=== PATIENT | female | born 1990 | race Caucasian/White ===

== ENCOUNTER 2016-12-16 17:04 | Emergency (ER) | payer OTHER ==
[~2016-12-16] VITALS: Ht 167.6 cm; Wt 118.2 kg
[2016-12-16 17:08] VITALS: BP 167/109; TEMP 98.6
[2016-12-16 17:53] LABS: BASO # 0.1 (0.0-0.2); BASO % 0.6 % (0.0-2.0); EOS % 0.5 % (0-4.0); GRAN # 5.2 (1.4-6.5); HEMATOCRIT 46.3 % (37.0-47.0); HEMOGLOBIN 16.2 g/dl (12.5-16.0); LYMPH # 2.8 (1.2-3.4); MEAN CELL VOLUME 85 fl (80.0-100.0); MEAN CORPUSCULAR HEMOGLOBIN 30 pg (27.0-31.0); MEAN CORPUSCULAR HGB CONC 35 g/dl (33.0-37.0); MEAN PLATELET VOLUME 10.1 fl (7.4-10.4); MONO # 0.5 (0.1-0.6); MONO % 5.7 % (1.7-9.3); PLATELET COUNT 272 K/mm3 (130-400); RED BLOOD COUNT 5.42 M/mm3 (4.10-5.30); REDCELL DISTRIBUTION WIDTH-CV 12.4 % (11.5-14.5); WHITE BLOOD COUNT 8.6 K/mm3 (4.8-10.8)
[2016-12-16 17:55] LABS: ADJUSTED CALCIUM 9.3 mg/dL (8.4-10.2); ALBUMIN 4.5 gm/dL (3.5-5.0); BILIRUBIN,TOTAL 0.8 mg/dL (0.0-1.0); CALCIUM 9.7 mg/dL (8.4-10.2); CREATININE, serum 0.85 mg/dL (0.52-1.25); POTASSIUM 3.9 mmol/L (3.4-5.0); TOTAL PROTEIN 8.2 gm/dL (6.4-8.2)
[2016-12-16 18:00] LABS: PH 5 (5-8); URINE APPEARANCE Hazy; URINE BACTERIA Rare /hpf; URINE BILIRUBIN Negative (NEGATIVE); URINE BLOOD 3+ (NEGATIVE); URINE COLOR Yellow; URINE GLUCOSE Negative (NEGATIVE); URINE KETONE Negative (NEGATIVE); URINE RBC >50 /hpf; URINE UROBILINOGEN Negative (NEGATIVE)
[2016-12-16] MEDS ORDERED: NORCO 325 MG-51 TAB PO (18:42)
[2016-12-16 18:56] VITALS: PULSE 80
== END 2016-12-16 18:57 | disposition home or self-care (01) ==
LOC: COL.ER 17:04 → EDBD 17:15 → COL.ER 18:57
PROVIDERS: Family Medicine
DX: N20.1 Calculus of ureter (principal); Z98.890 Other specified postprocedural states
CPT/HCPCS: J2270; J2405; J7030

== ENCOUNTER 2016-12-18 21:55 | Observation (INO) | payer OTHER ==
[~2016-12-18] VITALS: Ht 167.6 cm; Wt 123.6 kg
[~2016-12-18 21:55] MED LIST: NORCO 325 MG-51 TAB PO
[2016-12-18 22:39] LABS: PH 6 (5-8); URINE APPEARANCE Hazy; URINE BACTERIA Rare /hpf; URINE BILIRUBIN Negative (NEGATIVE); URINE BLOOD Negative (NEGATIVE); URINE COLOR Yellow; URINE GLUCOSE Negative (NEGATIVE); URINE KETONE Negative (NEGATIVE); URINE RBC 0-2 /hpf; URINE UROBILINOGEN Negative (NEGATIVE); URINE WBC 0-2 /hpf
[2016-12-18 22:54] LABS: BASO % 0.5 % (0.0-2.0); EOS # 0.1 (0.0-0.7); EOS % 1.7 % (0-4.0); GRAN # 3.8 (1.4-6.5); GRAN % 46.3 % (42.2-75.2); HEMOGLOBIN 15.5 g/dl (12.5-16.0); LYMPH # 3.6 (1.2-3.4); LYMPH % 44.8 % (20.0-51.0); MEAN CELL VOLUME 87 fl (80.0-100.0); MEAN CORPUSCULAR HEMOGLOBIN 29 pg (27.0-31.0); MEAN CORPUSCULAR HGB CONC 34 g/dl (33.0-37.0); MEAN PLATELET VOLUME 10.3 fl (7.4-10.4); MONO # 0.5 (0.1-0.6); MONO % 6.6 % (1.7-9.3); PLATELET COUNT 247 K/mm3 (130-400); RED BLOOD COUNT 5.31 M/mm3 (4.10-5.30); REDCELL DISTRIBUTION WIDTH-CV 12.5 % (11.5-14.5); WHITE BLOOD COUNT 8.1 K/mm3 (4.8-10.8)
[2016-12-18 23:04] LABS: CALCIUM 9.3 mg/dL (8.4-10.2); CREATININE, serum 0.73 mg/dL (0.52-1.25); POTASSIUM 4.1 mmol/L (3.4-5.0)
[2016-12-19] VITALS (8 sets, daily range): BP systolic 123–149; BP diastolic 65–88; PULSE 64–81; TEMP 97.5–98.6
[2016-12-20] VITALS (12 sets, daily range): BP systolic 130–164; BP diastolic 72–94; PULSE 7–82; TEMP 97.7–98.1
[2016-12-20] MEDS ORDERED: PYRIDIUM 100MG100 MG PO (11:03)
== END 2016-12-20 11:50 | disposition home or self-care (01) ==
LOC: COL.ER 21:55 → MEDICAL 22:41
PROVIDERS: Emergency Medicine
DX: N20.1 Calculus of ureter (principal); Z87.442 Personal history of urinary calculi; F32.9 Major depressive disorder, single episode, unspecified; J45.909 Unspecified asthma, uncomplicated; Z90.49 Acquired absence of other specified parts of digestive tract
CPT/HCPCS: G0378; J0690; J1170; J1885; J2405; J2704; J3010; J7030

== ENCOUNTER → 2017-01-04 | Outpatient (CLI) | payer OTHER ==
[~2017-01-04] MED LIST changes: +PERCOCET 325 MG1 TA2 PO; +PHENERGAN 25 TA25 MG PO; +PYRIDIUM 100MG100 MG PO; +ZOFRAN 4MG T4 MG/TAB PO
== END ==
LOC: COL.RAD 12:07
DX: N20.0 Calculus of kidney (principal)

== ENCOUNTER 2017-01-28 18:55 | Emergency (ER) | payer OTHER ==
[~2017-01-28] VITALS: Ht 167.6 cm; Wt 118.2 kg
[~2017-01-28 18:55] MED LIST changes: -PERCOCET 325 MG1 TA2 PO; -PHENERGAN 25 TA25 MG PO; -ZOFRAN 4MG T4 MG/TAB PO
[2017-01-28 18:58] VITALS: TEMP 98
[2017-01-28 19:36] LABS: BASO # 0.1 (0.0-0.2); BASO % 0.6 % (0.0-2.0); EOS # 0.1 (0.0-0.7); EOS % 1.2 % (0-4.0); GRAN # 4.7 (1.4-6.5); GRAN % 54.6 % (42.2-75.2); HEMATOCRIT 48.9 % (37.0-47.0); LYMPH # 3.2 (1.2-3.4); LYMPH % 37.3 % (20.0-51.0); MEAN CELL VOLUME 85 fl (80.0-100.0); MEAN CORPUSCULAR HEMOGLOBIN 30 pg (27.0-31.0); MEAN CORPUSCULAR HGB CONC 35 g/dl (33.0-37.0); MONO # 0.5 (0.1-0.6); MONO % 6.2 % (1.7-9.3); PLATELET COUNT 320 K/mm3 (130-400); RED BLOOD COUNT 5.76 M/mm3 (4.10-5.30); REDCELL DISTRIBUTION WIDTH-CV 12.2 % (11.5-14.5); WHITE BLOOD COUNT 8.6 K/mm3 (4.8-10.8)
[2017-01-28 19:45] LABS: ADJUSTED CALCIUM 9.7 mg/dL (8.4-10.2); ALBUMIN 4.8 gm/dL (3.5-5.0); BILIRUBIN,TOTAL 0.7 mg/dL (0.0-1.0); CALCIUM 10.3 mg/dL (8.4-10.2); CREATININE, serum 0.85 mg/dL (0.52-1.25); PH 5 (5-8); TOTAL PROTEIN 8.7 gm/dL (6.4-8.2); URINE APPEARANCE Cloudy; URINE BACTERIA Rare /hpf; URINE BILIRUBIN Negative (NEGATIVE); URINE BLOOD Negative (NEGATIVE); URINE COLOR Yellow; URINE GLUCOSE Negative (NEGATIVE); URINE KETONE Negative (NEGATIVE); URINE RBC 0-2 /hpf; URINE UROBILINOGEN Negative (NEGATIVE)
[2017-01-28] MEDS ORDERED: ZOFRAN 4MG T4 MG/TAB PO (20:17)
[2017-01-28] MEDS ORDERED: NORCO 325 MG-51 TAB PO (20:17)
[2017-01-28 20:53] VITALS: BP 133/83; PULSE 82
== END 2017-01-28 20:53 | disposition home or self-care (01) ==
LOC: COL.ER 18:55
PROVIDERS: Emergency Medicine
DX: N20.1 Calculus of ureter (principal); Z95.5 Presence of coronary angioplasty implant and graft
CPT/HCPCS: J1170; J1885; J2550; J7030

== ENCOUNTER 2017-01-31 16:26 | Emergency (ER) | payer OTHER ==
[~2017-01-31] VITALS: Ht 167.6 cm; Wt 119.0 kg
[~2017-01-31 16:26] MED LIST changes: +ZOFRAN 4MG T4 MG/TAB PO
[2017-01-31 16:28] VITALS: BP 163/91; TEMP 97.9
[2017-01-31 17:28] LABS: BASO % 0.5 % (0.0-2.0); EOS # 0.1 (0.0-0.7); EOS % 0.9 % (0-4.0); GRAN # 4.6 (1.4-6.5); GRAN % 53.7 % (42.2-75.2); HEMATOCRIT 44.7 % (37.0-47.0); HEMOGLOBIN 15.5 g/dl (12.5-16.0); LYMPH # 3.3 (1.2-3.4); LYMPH % 38.6 % (20.0-51.0); MEAN CELL VOLUME 86 fl (80.0-100.0); MEAN CORPUSCULAR HEMOGLOBIN 30 pg (27.0-31.0); MEAN CORPUSCULAR HGB CONC 35 g/dl (33.0-37.0); MEAN PLATELET VOLUME 10.1 fl (7.4-10.4); MONO # 0.5 (0.1-0.6); MONO % 6.1 % (1.7-9.3); PLATELET COUNT 288 K/mm3 (130-400); RED BLOOD COUNT 5.22 M/mm3 (4.10-5.30); REDCELL DISTRIBUTION WIDTH-CV 12.2 % (11.5-14.5); WHITE BLOOD COUNT 8.6 K/mm3 (4.8-10.8)
[2017-01-31 17:36] LABS: ADJUSTED CALCIUM 8.9 mg/dL (8.4-10.2); ALBUMIN 4.4 gm/dL (3.5-5.0); BILIRUBIN,TOTAL 0.7 mg/dL (0.0-1.0); CALCIUM 9.2 mg/dL (8.4-10.2); CREATININE, serum 0.79 mg/dL (0.52-1.25); POTASSIUM 3.8 mmol/L (3.4-5.0); TOTAL PROTEIN 7.7 gm/dL (6.4-8.2)
[2017-01-31 17:40] LABS: C-REACTIVE PROTEIN 0.5 mg/dL (0.0-0.9)
[2017-01-31 18:03] LABS: PH 6 (5-8); SQUAMOUS EPITHELIAL 0-2 /hpf; URINE APPEARANCE Clear; URINE BACTERIA Rare /hpf; URINE BILIRUBIN Negative (NEGATIVE); URINE BLOOD Negative (NEGATIVE); URINE COLOR Yellow; URINE GLUCOSE Negative (NEGATIVE); URINE KETONE Negative (NEGATIVE); URINE RBC None Seen /hpf; URINE WBC 0-2 /hpf
[2017-01-31 19:27] VITALS: PULSE 90
== END 2017-01-31 19:29 | disposition home or self-care (01) ==
LOC: COL.ER 16:26
PROVIDERS: Nurse Practitioner
DX: R10.9 Unspecified abdominal pain (principal); Z87.442 Personal history of urinary calculi; Z90.49 Acquired absence of other specified parts of digestive tract; Z90.89 Acquired absence of other organs; Z87.891 Personal history of nicotine dependence
CPT/HCPCS: J1170; J1885; J2405; J7030; Q9967

== ENCOUNTER 2017-02-17 18:13 | Emergency (ER) | payer SELFPAY ==
[~2017-02-17] VITALS: Ht 167.6 cm; Wt 116.6 kg
[2017-02-17 18:16] VITALS: BP 172/83; TEMP 99.3
[2017-02-17] MEDS ORDERED: PHENERGAN 25 TA25 MG PO (19:17)
[2017-02-17] MEDS ORDERED: PERCOCET 325 MG1 TA2 PO (19:17)
[2017-02-17 19:29] LABS: PH 5 (5-8); SQUAMOUS EPITHELIAL 0-2 /hpf; URINE APPEARANCE Cloudy; URINE BACTERIA None Seen /hpf; URINE BILIRUBIN Negative (NEGATIVE); URINE BLOOD 1+ (NEGATIVE); URINE COLOR Yellow; URINE GLUCOSE Negative (NEGATIVE); URINE KETONE Negative (NEGATIVE)
[2017-02-17 19:30] VITALS: PULSE 86
== END 2017-02-17 19:30 | disposition home or self-care (01) ==
LOC: COL.ER 18:13
PROVIDERS: Nurse Practitioner
DX: R10.9 Unspecified abdominal pain (principal); Z87.442 Personal history of urinary calculi; Z98.890 Other specified postprocedural states

== ENCOUNTER 2017-05-04 01:51 | Emergency (ER) | payer OTHER ==
[~2017-05-04] VITALS: Ht 167.6 cm; Wt 118.2 kg
[~2017-05-04 01:51] MED LIST changes: +ASPERCREME1 EACH TP; +PERCOCET 325 MG1 TA2 PO; +PHENERGAN 25 TA25 MG PO; +ULTRAM 50MG TAB50 MG PO; +VOLTAREN 75 DR75 MG PO
[2017-05-04 01:53] VITALS: BP 180/85; PULSE 85; TEMP 98
[2017-05-04 02:22] LABS: BASO # 0.1 (0.0-0.2); BASO % 0.7 % (0.0-2.0); EOS # 0.4 (0.0-0.7); EOS % 3.5 % (0-4.0); HEMATOCRIT 45.1 % (37.0-47.0); HEMOGLOBIN 15.6 g/dl (12.5-16.0); LYMPH # 4.4 (1.2-3.4); LYMPH % 41.8 % (20.0-51.0); MEAN CELL VOLUME 86 fl (80.0-100.0); MEAN CORPUSCULAR HEMOGLOBIN 30 pg (27.0-31.0); MEAN CORPUSCULAR HGB CONC 35 g/dl (33.0-37.0); MEAN PLATELET VOLUME 9.7 fl (7.4-10.4); MONO # 0.6 (0.1-0.6); MONO % 5.7 % (1.7-9.3); PLATELET COUNT 287 K/mm3 (130-400); RED BLOOD COUNT 5.24 M/mm3 (4.10-5.30); WHITE BLOOD COUNT 10.5 K/mm3 (4.8-10.8)
[2017-05-04 02:34] LABS: ADJUSTED CALCIUM 9.1 mg/dL (8.4-10.2); ALANINE AMINOTRANSFERASE 124 U/L (9-52); ALBUMIN 4.8 gm/dL (3.5-5.0); ALKALINE PHOSPHATASE 131 U/L (50-136); ANION GAP 10 mmol/L (7-16); BILIRUBIN,TOTAL 0.6 mg/dL (0.0-1.0); BLOOD UREA NITROGEN 9 mg/dL (7-17); CALCIUM 9.7 mg/dL (8.4-10.2); CARBON DIOXIDE 23 mmol/L (22-30); CHLORIDE 106 mmol/L (98-107); CREATININE, serum 0.75 mg/dL (0.52-1.25); GLUCOSE 103 mg/dL (74-106); POTASSIUM 3.8 mmol/L (3.4-5.0); SODIUM 139 mmol/L (137-145); TOTAL PROTEIN 8.2 gm/dL (6.4-8.2)
[2017-05-04 02:38] LABS: COLLECTION METHOD CLEAN CATCH
[2017-05-04 02:38] LABS: C-REACTIVE PROTEIN < 0.5 mg/dL (0.0-0.9)
[2017-05-04 02:43] LABS: MUCOUS Present /lpf; PH 7 (5-8); SQUAMOUS EPITHELIAL 0-2 /hpf; URINE APPEARANCE Clear; URINE BACTERIA None Seen /hpf; URINE BILIRUBIN Negative (NEGATIVE); URINE BLOOD Negative (NEGATIVE); URINE COLOR Straw; URINE GLUCOSE Negative (NEGATIVE); URINE KETONE Negative (NEGATIVE); URINE LEUKOCYTE ESTERASE Negative (NEGATIVE); URINE PROTEIN(semi-quant) Negative (NEGATIVE); URINE RBC 0-2 /hpf; URINE UROBILINOGEN Negative (NEGATIVE); URINE WBC 0-2 /hpf
== END 2017-05-04 03:08 | disposition home or self-care (01) ==
LOC: COL.ER 01:51
PROVIDERS: Physician Assistant
DX: R10.9 Unspecified abdominal pain (principal); F17.210 Nicotine dependence, cigarettes, uncomplicated; Z90.49 Acquired absence of other specified parts of digestive tract; Z87.442 Personal history of urinary calculi
CPT/HCPCS: J1885

== ENCOUNTER 2017-06-05 16:15 | Emergency (ER) | payer OTHER ==
[~2017-06-05] VITALS: Ht 167.6 cm; Wt 106.2 kg
[2017-06-05 16:22] VITALS: BP 150/83; TEMP 99.1
[2017-06-05 17:43] LABS: INFLUENZA A NEGATIVE; INFLUENZA B NEGATIVE
[2017-06-05] MEDS ORDERED: PREDNISONE20 MG PO (18:32)
[2017-06-05 18:39] VITALS: PULSE 128
== END 2017-06-05 18:40 | disposition home or self-care (01) ==
LOC: COL.ER 16:15
PROVIDERS: Nurse Practitioner
DX: R05 Cough (principal); R00.0 Tachycardia, unspecified; Z88.0 Allergy status to penicillin; R50.9 Fever, unspecified; R07.1 Chest pain on breathing; R09.81 Nasal congestion; R53.81 Other malaise; R06.02 Shortness of breath
CPT/HCPCS: J7512

== ENCOUNTER 2017-09-07 17:41 | Emergency (ER) | payer SELFPAY ==
[~2017-09-07] VITALS: Ht 167.6 cm; Wt 118.2 kg
[~2017-09-07 17:41] MED LIST changes: +PREDNISONE20 MG PO
[2017-09-07 17:45] VITALS: TEMP 98.8
[2017-09-07 18:08] LABS: COLLECTION METHOD CLEAN CATCH
[2017-09-07 18:17] LABS: MUCOUS Present /lpf; PH 7 (5-8); SQUAMOUS EPITHELIAL 0-2 /hpf; URINE APPEARANCE Clear; URINE BACTERIA None Seen /hpf; URINE BILIRUBIN Negative (NEGATIVE); URINE BLOOD Negative (NEGATIVE); URINE COLOR Yellow; URINE GLUCOSE Negative (NEGATIVE); URINE KETONE Negative (NEGATIVE); URINE LEUKOCYTE ESTERASE Negative (NEGATIVE); URINE NITRATE Negative (NEGATIVE); URINE PROTEIN(semi-quant) Negative (NEGATIVE); URINE RBC 0-2 /hpf; URINE UROBILINOGEN Negative (NEGATIVE)
[2017-09-07 18:21] LABS: BASO % 0.4 % (0.0-2.0); EOS # 0.2 (0.0-0.7); EOS % 1.8 % (0-4.0); GRAN # 5.8 (1.4-6.5); HEMATOCRIT 46.5 % (37.0-47.0); LYMPH # 2.2 (1.2-3.4); LYMPH % 24.7 % (20.0-51.0); MEAN CELL VOLUME 85 fl (80.0-100.0); MEAN CORPUSCULAR HEMOGLOBIN 29 pg (27.0-31.0); MEAN CORPUSCULAR HGB CONC 34 g/dl (33.0-37.0); MEAN PLATELET VOLUME 9.7 fl (7.4-10.4); MONO # 0.7 (0.1-0.6); MONO % 7.9 % (1.7-9.3); PLATELET COUNT 296 K/mm3 (130-400); RED BLOOD COUNT 5.45 M/mm3 (4.10-5.30); REDCELL DISTRIBUTION WIDTH-CV 12.5 % (11.5-14.5)
[2017-09-07 18:33] LABS: ALBUMIN 4.3 gm/dL (3.5-5.0); BILIRUBIN,TOTAL 0.5 mg/dL (0.0-1.0); C-REACTIVE PROTEIN 1.3 mg/dL (0.0-0.9); CALCIUM 9.4 mg/dL (8.4-10.2); CREATININE, serum 0.96 mg/dL (0.52-1.25); TOTAL PROTEIN 8.7 gm/dL (6.4-8.2)
[2017-09-07] MEDS ORDERED: BENTYL 20MG20 MG/TAB PO (20:19)
[2017-09-07 20:34] VITALS: BP 141/93; PULSE 82
== END 2017-09-07 20:35 | disposition home or self-care (01) ==
LOC: COL.ER 17:41
PROVIDERS: Emergency Medicine
DX: R19.7 Diarrhea, unspecified (principal); R10.84 Generalized abdominal pain; E28.2 Polycystic ovarian syndrome; Z87.442 Personal history of urinary calculi
CPT/HCPCS: J0500; J1885

== ENCOUNTER 2018-01-31 17:29 | Emergency (ER) | payer SELFPAY ==
[~2018-01-31] VITALS: Ht 167.6 cm; Wt 118.2 kg
[~2018-01-31 17:29] MED LIST changes: +BENTYL 20MG20 MG/TAB PO
[2018-01-31 17:36] VITALS: TEMP 98.3
[2018-01-31 17:59] LABS: COLLECTION METHOD CLEAN CATCH
[2018-01-31 18:08] LABS: BASO # 0.1 (0.0-0.2); BASO % 0.6 % (0.0-2.0); EOS # 0.2 (0.0-0.7); EOS % 2.3 % (0-4.0); GRAN # 5.5 (1.4-6.5); GRAN % 56.1 % (42.2-75.2); HEMATOCRIT 44.9 % (37.0-47.0); HEMOGLOBIN 14.9 g/dl (12.5-16.0); LYMPH # 3.3 (1.2-3.4); LYMPH % 33.2 % (20.0-51.0); MEAN CELL VOLUME 87 fl (80.0-100.0); MEAN CORPUSCULAR HEMOGLOBIN 29 pg (27.0-31.0); MEAN CORPUSCULAR HGB CONC 33 g/dl (33.0-37.0); MEAN PLATELET VOLUME 10.2 fl (7.4-10.4); MONO # 0.7 (0.1-0.6); MONO % 7.5 % (1.7-9.3); PLATELET COUNT 271 K/mm3 (130-400); RED BLOOD COUNT 5.17 M/mm3 (4.10-5.30); REDCELL DISTRIBUTION WIDTH-CV 12.3 % (11.5-14.5)
[2018-01-31 18:14] LABS: ALBUMIN 4.1 gm/dL (3.5-5.0); BILIRUBIN,TOTAL 0.6 mg/dL (0.0-1.0); CALCIUM 8.9 mg/dL (8.4-10.2); CREATININE, serum 0.82 mg/dL (0.52-1.25); TOTAL PROTEIN 7.8 gm/dL (6.4-8.2)
[2018-01-31 18:27] LABS: MUCOUS Present /lpf; PH 6 (5-8); URINE APPEARANCE Hazy; URINE BACTERIA Rare /hpf; URINE BILIRUBIN Negative (NEGATIVE); URINE BLOOD Negative (NEGATIVE); URINE COLOR Yellow; URINE GLUCOSE Negative (NEGATIVE); URINE KETONE Negative (NEGATIVE); URINE LEUKOCYTE ESTERASE Negative (NEGATIVE); URINE NITRATE Negative (NEGATIVE); URINE PROTEIN(semi-quant) Negative (NEGATIVE); URINE RBC 0-2 /hpf; URINE UROBILINOGEN >=4.0 mg/dL (NEGATIVE); URINE WBC 0-2 /hpf
[2018-01-31] MEDS ORDERED: ZOFRAN ODT4 MG PO (18:53)
[2018-01-31] MEDS ORDERED: NORCO 325 MG-51 TAB PO (18:53)
[2018-01-31] MEDS ORDERED: PERCOCET 325 MG1 TA2 PO (18:59)
[2018-01-31 19:29] VITALS: BP 115/72; PULSE 81
== END 2018-01-31 19:29 | disposition home or self-care (01) ==
LOC: COL.ER 17:29
PROVIDERS: Physician Assistant
DX: R11.2 Nausea with vomiting, unspecified (principal); R10.9 Unspecified abdominal pain; Z87.448 Personal history of other diseases of urinary system; Z90.89 Acquired absence of other organs; Z88.0 Allergy status to penicillin; Z90.49 Acquired absence of other specified parts of digestive tract
CPT/HCPCS: J1885; J2405; J3010; J7030

== ENCOUNTER 2018-02-23 17:21 | Emergency (ER) | payer SELFPAY ==
[~2018-02-23 17:21] MED LIST changes: +ZOFRAN ODT4 MG PO
[2018-02-23 17:39] VITALS: TEMP 98.8
[2018-02-23 18:02] LABS: COLLECTION METHOD CLEAN CATCH
[2018-02-23 18:15] LABS: MUCOUS Present /lpf; PH 6 (5-8); URINE APPEARANCE Hazy; URINE BACTERIA None Seen /hpf; URINE BILIRUBIN Negative (NEGATIVE); URINE BLOOD Negative (NEGATIVE); URINE COLOR Yellow; URINE GLUCOSE Negative (NEGATIVE); URINE KETONE Negative (NEGATIVE); URINE LEUKOCYTE ESTERASE Negative (NEGATIVE); URINE NITRATE Negative (NEGATIVE); URINE PROTEIN(semi-quant) Negative (NEGATIVE); URINE UROBILINOGEN >=4.0 mg/dL (NEGATIVE)
[2018-02-23 18:49] LABS: BASO % 0.4 % (0.0-2.0); EOS # 0.2 (0.0-0.7); EOS % 1.9 % (0-4.0); GRAN # 4.9 (1.4-6.5); GRAN % 59.8 % (42.2-75.2); HEMATOCRIT 47.8 % (37.0-47.0); HEMOGLOBIN 16.1 g/dl (12.5-16.0); LYMPH # 2.6 (1.2-3.4); LYMPH % 31.1 % (20.0-51.0); MEAN CELL VOLUME 86 fl (80.0-100.0); MEAN CORPUSCULAR HEMOGLOBIN 29 pg (27.0-31.0); MEAN CORPUSCULAR HGB CONC 34 g/dl (33.0-37.0); MEAN PLATELET VOLUME 9.9 fl (7.4-10.4); MONO # 0.5 (0.1-0.6); MONO % 6.6 % (1.7-9.3); PLATELET COUNT 266 K/mm3 (130-400); RED BLOOD COUNT 5.58 M/mm3 (4.10-5.30); REDCELL DISTRIBUTION WIDTH-CV 12.3 % (11.5-14.5)
[2018-02-23 19:02] LABS: ALBUMIN 4.1 gm/dL (3.5-5.0); BILIRUBIN,TOTAL 0.8 mg/dL (0.0-1.0); C-REACTIVE PROTEIN 0.7 mg/dL (0.0-0.9); CALCIUM 9.2 mg/dL (8.4-10.2); CREATININE, serum 0.74 mg/dL (0.52-1.25); POTASSIUM 3.8 mmol/L (3.4-5.0); TOTAL PROTEIN 7.8 gm/dL (6.4-8.2)
[2018-02-23] MEDS ORDERED: PERCOCET 325 MG1 TA2 PO (19:31)
[2018-02-23] MEDS ORDERED: ZOFRAN ODT4 MG PO (19:31)
[2018-02-23 19:52] VITALS: BP 138/94; PULSE 89
== END 2018-02-23 19:52 | disposition home or self-care (01) ==
LOC: COL.ER 17:21
PROVIDERS: Physician Assistant
DX: R10.13 Epigastric pain (principal); R11.2 Nausea with vomiting, unspecified; F17.210 Nicotine dependence, cigarettes, uncomplicated; Z87.442 Personal history of urinary calculi; Z32.02 Encounter for pregnancy test, result negative
CPT/HCPCS: J1885; J2405; J3010; J7030

== ENCOUNTER 2018-02-27 13:52 | Emergency (ER) | payer SELFPAY ==
[~2018-02-27] VITALS: Ht 167.6 cm; Wt 118.2 kg
[2018-02-27 13:56] VITALS: TEMP 98.3
[2018-02-27 14:18] LABS: COLLECTION METHOD CLEAN CATCH
[2018-02-27 14:35] LABS: MUCOUS Present /lpf; PH 6 (5-8); URINE APPEARANCE Cloudy; URINE BACTERIA Rare /hpf; URINE BILIRUBIN Negative (NEGATIVE); URINE BLOOD 3+ (NEGATIVE); URINE CALCIUM OXALATE CRYSTAL Present /hpf; URINE COLOR Yellow; URINE GLUCOSE Negative (NEGATIVE); URINE KETONE Negative (NEGATIVE); URINE LEUKOCYTE ESTERASE Negative (NEGATIVE); URINE NITRATE Negative (NEGATIVE); URINE PROTEIN(semi-quant) 1+ (NEGATIVE); URINE RBC >50 /hpf
[2018-02-27] MEDS ORDERED: PERCOCET 325 MG1 TA2 PO (15:29)
[2018-02-27] MEDS ORDERED: ZOFRAN ODT4 MG PO (15:29)
[2018-02-27 15:47] VITALS: BP 133/104; PULSE 75
== END 2018-02-27 15:48 | disposition home or self-care (01) ==
LOC: COL.ER 13:52
PROVIDERS: Nurse Practitioner
DX: N20.0 Calculus of kidney (principal); F17.210 Nicotine dependence, cigarettes, uncomplicated; Z90.49 Acquired absence of other specified parts of digestive tract; Z98.890 Other specified postprocedural states
CPT/HCPCS: J1885; J2405; J7030

== ENCOUNTER 2018-03-24 02:09 | Emergency (ER) | payer SELFPAY ==
[~2018-03-24] VITALS: Ht 167.6 cm; Wt 118.2 kg
[2018-03-24 02:14] VITALS: TEMP 97.7
[2018-03-24 03:59] LABS: COLLECTION METHOD CLEAN CATCH
[2018-03-24 04:02] LABS: BASO # 0.1 (0.0-0.2); BASO % 0.6 % (0.0-2.0); EOS # 0.3 (0.0-0.7); EOS % 2.4 % (0-4.0); GRAN # 5.8 (1.4-6.5); GRAN % 54.5 % (42.2-75.2); HEMATOCRIT 46.7 % (37.0-47.0); HEMOGLOBIN 15.8 g/dl (12.5-16.0); LYMPH # 3.8 (1.2-3.4); LYMPH % 35.8 % (20.0-51.0); MEAN CELL VOLUME 86 fl (80.0-100.0); MEAN CORPUSCULAR HEMOGLOBIN 29 pg (27.0-31.0); MEAN CORPUSCULAR HGB CONC 34 g/dl (33.0-37.0); MEAN PLATELET VOLUME 10.1 fl (7.4-10.4); MONO # 0.7 (0.1-0.6); MONO % 6.4 % (1.7-9.3); PLATELET COUNT 259 K/mm3 (130-400); RED BLOOD COUNT 5.46 M/mm3 (4.10-5.30); REDCELL DISTRIBUTION WIDTH-CV 12.3 % (11.5-14.5)
[2018-03-24 04:10] LABS: PH 7 (5-8); SQUAMOUS EPITHELIAL 0-2 /hpf; URINE APPEARANCE Clear; URINE BACTERIA Rare /hpf; URINE BILIRUBIN Negative (NEGATIVE); URINE BLOOD Negative (NEGATIVE); URINE COLOR Yellow; URINE GLUCOSE Negative (NEGATIVE); URINE KETONE Negative (NEGATIVE); URINE LEUKOCYTE ESTERASE Negative (NEGATIVE); URINE NITRATE Negative (NEGATIVE); URINE PROTEIN(semi-quant) Negative (NEGATIVE); URINE RBC 0-2 /hpf
[2018-03-24 04:11] LABS: ALBUMIN 4.3 gm/dL (3.5-5.0); BILIRUBIN,TOTAL 0.7 mg/dL (0.0-1.0); CALCIUM 9.2 mg/dL (8.4-10.2); CREATININE, serum 0.76 mg/dL (0.52-1.25); POTASSIUM 3.8 mmol/L (3.4-5.0); TOTAL PROTEIN 7.8 gm/dL (6.4-8.2)
[2018-03-24] MEDS ORDERED: PERCOCET 325 MG1 TA2 PO (05:41)
[2018-03-24] MEDS ORDERED: ZOFRAN 4MG T4 MG/TAB PO (05:41)
[2018-03-24 05:54] VITALS: BP 132/91; PULSE 81
== END 2018-03-24 05:54 | disposition home or self-care (01) ==
LOC: COL.ER 02:09
PROVIDERS: Emergency Medicine
DX: G89.29 Other chronic pain (principal); R10.9 Unspecified abdominal pain; E66.9 Obesity, unspecified; E28.2 Polycystic ovarian syndrome; J45.909 Unspecified asthma, uncomplicated; Z90.89 Acquired absence of other organs; Z90.49 Acquired absence of other specified parts of digestive tract; Z87.442 Personal history of urinary calculi; F17.210 Nicotine dependence, cigarettes, uncomplicated
CPT/HCPCS: J1885; J2405; J3010; J7030

== ENCOUNTER 2018-03-30 13:10 | Emergency (ER) | payer SELFPAY ==
[~2018-03-30] VITALS: Ht 167.6 cm; Wt 109.1 kg
[2018-03-30 13:13] VITALS: TEMP 98.6
[2018-03-30 13:25] LABS: COLLECTION METHOD CLEAN CATCH
[2018-03-30 13:43] LABS: MUCOUS Present /lpf; PH 7 (5-8); URINE APPEARANCE Hazy; URINE BACTERIA Rare /hpf; URINE BILIRUBIN Negative (NEGATIVE); URINE BLOOD Negative (NEGATIVE); URINE COLOR Yellow; URINE GLUCOSE Negative (NEGATIVE); URINE KETONE Negative (NEGATIVE); URINE LEUKOCYTE ESTERASE Negative (NEGATIVE); URINE NITRATE Negative (NEGATIVE); URINE PROTEIN(semi-quant) Negative (NEGATIVE); URINE RBC 0-2 /hpf
[2018-03-30 14:00] LABS: BASO % 0.5 % (0.0-2.0); EOS # 0.2 (0.0-0.7); EOS % 1.9 % (0-4.0); GRAN # 4.7 (1.4-6.5); GRAN % 60.8 % (42.2-75.2); HEMATOCRIT 47.7 % (37.0-47.0); HEMOGLOBIN 16.4 g/dl (12.5-16.0); LYMPH # 2.3 (1.2-3.4); LYMPH % 29.6 % (20.0-51.0); MEAN CELL VOLUME 86 fl (80.0-100.0); MEAN CORPUSCULAR HEMOGLOBIN 30 pg (27.0-31.0); MEAN CORPUSCULAR HGB CONC 34 g/dl (33.0-37.0); MEAN PLATELET VOLUME 9.9 fl (7.4-10.4); MONO # 0.5 (0.1-0.6); MONO % 6.9 % (1.7-9.3); PLATELET COUNT 268 K/mm3 (130-400); RED BLOOD COUNT 5.54 M/mm3 (4.10-5.30); REDCELL DISTRIBUTION WIDTH-CV 12.6 % (11.5-14.5)
[2018-03-30 14:12] LABS: ALBUMIN 4.4 gm/dL (3.5-5.0); C-REACTIVE PROTEIN 0.8 mg/dL (0.0-0.9); CALCIUM 9.4 mg/dL (8.4-10.2); CREATININE, serum 0.74 mg/dL (0.52-1.25); POTASSIUM 4.1 mmol/L (3.4-5.0); TOTAL PROTEIN 8.1 gm/dL (6.4-8.2)
[2018-03-30] MEDS ORDERED: PHENERGAN 25 TA25 MG PO (15:31)
[2018-03-30 16:27] VITALS: BP 143/91; PULSE 72
== END 2018-03-30 16:28 | disposition home or self-care (01) ==
LOC: COL.ER 13:10
PROVIDERS: Nurse Practitioner
DX: R10.11 Right upper quadrant pain (principal); R10.12 Left upper quadrant pain; I10 Essential (primary) hypertension; J45.909 Unspecified asthma, uncomplicated; F17.210 Nicotine dependence, cigarettes, uncomplicated; Z87.442 Personal history of urinary calculi; Z90.49 Acquired absence of other specified parts of digestive tract; Z79.899 Other long term (current) drug therapy
CPT/HCPCS: J1170; J1885; J2405; J7030; Q9967

== ENCOUNTER 2018-05-01 21:57 | Emergency (ER) | payer SELFPAY ==
[~2018-05-01] VITALS: Ht 167.6 cm; Wt 118.2 kg
[2018-05-01 21:59] VITALS: BP 164/83; TEMP 97.4
[2018-05-01 22:46] LABS: BASO % 0.4 % (0.0-2.0); EOS # 0.1 (0.0-0.7); GRAN # 7.3 (1.4-6.5); GRAN % 66.2 % (42.2-75.2); HEMATOCRIT 44.9 % (37.0-47.0); HEMOGLOBIN 15.7 g/dl (12.5-16.0); LYMPH # 2.9 (1.2-3.4); LYMPH % 26.3 % (20.0-51.0); MEAN CELL VOLUME 86 fl (80.0-100.0); MEAN CORPUSCULAR HEMOGLOBIN 30 pg (27.0-31.0); MEAN CORPUSCULAR HGB CONC 35 g/dl (33.0-37.0); MEAN PLATELET VOLUME 9.9 fl (7.4-10.4); MONO # 0.6 (0.1-0.6); MONO % 5.8 % (1.7-9.3); PLATELET COUNT 227 K/mm3 (130-400); RED BLOOD COUNT 5.25 M/mm3 (4.10-5.30); REDCELL DISTRIBUTION WIDTH-CV 12.1 % (11.5-14.5)
[2018-05-01 23:29] VITALS: PULSE 89
== END 2018-05-01 23:30 | disposition home or self-care (01) ==
LOC: COL.ER 21:57
PROVIDERS: Emergency Medicine
DX: N92.1 Excessive and frequent menstruation with irregular cycle (principal); Z90.49 Acquired absence of other specified parts of digestive tract
CPT/HCPCS: J1885